=== PATIENT | female | born 1990 | race American Indian/Alaskan Native ===

== ENCOUNTER 2020-06-01 18:55 | Emergency (ER) | payer SELFPAY ==
[2020-06-01] MEDS ORDERED: LIDOCAINE 1% MPF 5 ML VIAL ONE (19:57)
[2020-06-01] MEDS ORDERED: BUPIVACAINE 0.5% PF 10 ML VIAL ONE (19:57)
--- NOTE | 2020-06-01 22:03 | EDPHYS ---
Physician Documentation [facility] Name: Ruthy Hughes Age: 30 yrs Sex: Female : 1990 Arrival Date: 06/01/2020 Time: 18:59 Bed 17 Private MD: ED Physician Christopher Sinclair HPI: 06/01 19:38 This 30 yrs old Other Female presents to ER via Ambulatory with complaints of Finger mh7 Swelling. 19:38 The patient or guardian reports swelling. The complaints affect the Left middle mh7 fingertip. Context: The problem was sustained at an unknown location, resulted from biting finger nail. Onset: The symptoms/episode began/occurred 2 day(s) ago. Modifying factors: The symptoms are alleviated by nothing, the symptoms are aggravated by nothing. Associated signs and symptoms: Pertinent negatives: cyanosis distally, decreased sensation distally, fever, nausea, numbness distally, tingling distally, vomiting. Severity of symptoms: At their worst the symptoms were mild, yesterday, in the emergency department the symptoms are unchanged. NREMT: 19:19 LMP 04/2020 ca1 19:19 LMP N/A - control method ca1 Historical: - Allergies: 19:19 No Known Allergies; ca1 - Home Meds: 19:19 risperidone oral oral [Active]; sertraline oral oral [Active]; Hydroxyzine Oral ca1 [Active]; gabapentin oral oral [Active]; - PMHx: 19:19 Anxiety; ca1 - PSHx: 19:19 None; ca1 - Immunization history:: Adult Immunizations up to date. - Social history:: Smoking status: Patient reports the use of cigarette tobacco products, smokes one-half pack cigarettes per day. ROS: 19:38 Constitutional: Negative for fever, chills, and weight loss, Eyes: Negative for injury, mh7 pain, redness, and discharge, ENT: Negative for injury, pain, and discharge, Neck: Negative for injury, pain, and swelling, Cardiovascular: Negative for chest pain, palpitations, and edema, Respiratory: Negative for shortness of breath, cough, wheezing, and pleuritic chest pain, Abdomen/GI: Negative for abdominal pain, nausea, vomiting, diarrhea, and constipation, Back: Negative for injury and pain, : Negative for injury, bleeding, discharge, and swelling, Skin: Negative for injury, rash, and discoloration, Neuro: Negative for headache, weakness, numbness, tingling, and seizure, Psych: Negative for depression, anxiety, suicide ideation, homicidal ideation, and hallucinations, Allergy/Immunology: Negative for hives, rash, and allergies, Endocrine: Negative for neck swelling, polydipsia, polyuria, polyphagia, and marked weight changes, Hematologic/Lymphatic: Negative for swollen nodes, abnormal bleeding, and unusual bruising. Exam: 19:38 Constitutional: This is a well developed, well nourished patient who is awake, alert, mh7 and in no acute distress. Head/Face: Normocephalic, atraumatic. Chest/axilla: Normal chest wall appearance and motion. Nontender with no deformity. No lesions are appreciated. Cardiovascular: Regular rate and rhythm with a normal S1 and S2. No gallops, murmurs, or rubs. Normal PMI, no JVD. No pulse deficits. Respiratory: Lungs have equal breath sounds bilaterally, clear to auscultation and percussion. No rales, rhonchi or wheezes noted. No increased work of breathing, no retractions or nasal flaring. Abdomen/GI: Soft, non-tender, with normal bowel sounds. No distension or tympany. No guarding or rebound. No evidence of tenderness throughout. Back: No spinal tenderness. No costovertebral tenderness. Full range of motion. 19:38 Skin: Warm, dry with normal turgor. Normal color with no rashes, no lesions, and no evidence of cellulitis. Neuro: Awake and alert, GCS 15, oriented to person, place, time, and situation. Cranial nerves II-XII grossly intact. Motor strength 5/5 in all extremities. Sensory grossly intact. Cerebellar exam normal. Normal gait. Psych: Awake, alert, with orientation to person, place and time. Behavior, mood, and affect are within normal limits. 19:38 Musculoskeletal/extremity: Extremities: noted in the Left middle fingertip/jarett fold: erythema, swelling, tenderness, ROM: intact in all extremities, Circulation is intact in all extremities. Pulses: are normal with no appreciated deficits, Perfusion: the patient is normally perfused throughout, Perfusion: the extremity is normally perfused throughout, Sensation intact. Compartment Syndrome exam of affected extremity: is normal. no numbness, no tingling, no sensation deficit, no palor, no weak pulses, Joints: All joints appear normal with full range of motion. 06/02 05:27 Musculoskeletal/extremity: Swelling and tenderness to palmar left middle finger tip mh7 too. Vital Signs: 06/01 19:15 BP 126 / 69; Pulse 77; Resp 16 S; Temp 99.1(O); Pulse Ox 98% on R/A; Weight 97.52 kg ca1 (R); Height 5 ft. 4 in. (162.56 cm) (R); 20:00 BP 126 / 62; Pulse 75; Resp 16; Pulse Ox 100% ; rr5 21:00 BP 133 / 79; Pulse 80; Resp 15; Pulse Ox 98% ; rr5 22:17 BP 121 / 75; Pulse 70; Resp 19; Pulse Ox 99% ; rr5 19:15 Body Mass Index 36.90 (97.52 kg, 162.56 cm) ca1 Procedures: 21:57 I \T\ D: Incision and drainage was performed for an abscess of the left dorsal and volar mh7 left middle finger tip Prepped with Betadine, Anesthetized with 4 ml's 1% Lidocaine. Incised with #11 blade. Drained small amount purulent fluid. serosanguinous fluid. Packed with iodoform gauze, Dressing: sterile 4x4 gauze, non-Adherent dressing, the patient tolerated the procedure well. MDM: 19:34 Patient medically screened. 7 21:57 Differential diagnosis: contusion, abrasion, paronychia, felon. Data reviewed: [facility] signs, nurses notes. Data interpreted: Pulse oximetry: on room air is 98 %. Interpretation: normal. Counseling: I had a detailed discussion with the patient and/or guardian regarding: the historical points, exam findings, and any diagnostic results supporting the discharge/admit diagnosis, the need for outpatient follow up, to return to the emergency department if symptoms worsen or persist or if there are any questions or concerns that arise at home. Response to treatment: the patient's symptoms have markedly improved after treatment. 06/01 22:15 Order name: Incision \T\ Drainage Setup; Complete Time: 22:15 rr5 Administered Medications: 21:35 Drug: Lidocaine (1 %) 5 ml {Note: given by .} Volume: 5 ml; Route: rr5 Infiltration; 22:18 Follow up: Response: No adverse reaction rr5 22:16 Not Given (Other Intervention Used): Marcaine (0.5 %) 10 ml 10 ml Infiltration once rr5 Disposition: 06/01/20 22:01 Discharged to Home. Impression: Left Middle Finger Paronychia, Left Middle Finger Felon. - Condition is Stable. - Discharge Instructions: Paronychia, [id number], Felon. - Prescriptions for Ibuprofen 800 mg Oral Tablet - take 1 tablet by ORAL route every 8 hours As needed take with food; 15 tablet. Keflex 500 mg Oral Capsule - take 1 capsule by ORAL route every 6 hours for 7 days; 28 capsule. - Medication Reconciliation Form, Thank You Letter, Antibiotic Education, Prescription Opioid Use form. - Follow up: Emergency Department; When: 48 Hours; Reason: Wound Recheck. Follow up: Private Physician; When: 1 - 2 days; Reason: Worsening of condition, Recheck today's complaints, Continuance of care, Re-evaluation by your physician. - Problem is new. - Symptoms have improved. Signatures: Leo Andrew PA PA cp Roque, Raymond RN RN rr5 AcPamela woods RN RN ca1 Christopher Sinclair MD MD mh7 Corrections: (The following items were deleted from the chart) 22:18 22:01 06/01/2020 22:01 Discharged to Home. Impression: Left Middle Finger Paronychia; rr5 Left Middle Finger Felon. Condition is Stable. Forms are Medication Reconciliation Form, Thank You Letter, Antibiotic Education, Prescription Opioid Use. Follow up: Emergency Department; When: 48 Hours; Reason: Wound Recheck. Follow up: Private Physician; When: 1 - 2 days; Reason: Worsening of condition, Recheck today's complaints, Continuance of care, Re-evaluation by your physician. Problem is new. Symptoms have improved. mh7
--- NOTE | 2020-06-01 22:19 | ER ---
Nurse's Notes [facility] Name: Ruthy Hughes Age: 30 yrs Sex: Female : 1990 Arrival Date: 06/01/2020 Time: 18:59 Bed 17 Private MD: Diagnosis: Left Middle Finger Paronychia;Left Middle Finger Felon Presentation: 06/01 19:15 Chief complaint: Patient states: 3rd digit of L hand swelling x 2 days. Denies injury. ca1 Coronavirus screen: Client denies travel out of the [place] in the last 14 days. At this time, the client does not indicate any symptoms associated with coronavirus-19. Ebola Screen: Patient negative for fever greater than or equal to 101.5 degrees Fahrenheit, and additional compatible Ebola Virus Disease symptoms Patient denies exposure to infectious person. Patient denies travel to an Ebola-affected area in the 21 days before illness onset. No symptoms or risks identified at this time. Initial Sepsis Screen: Does the patient meet any 2 criteria? No. Patient's initial sepsis screen is negative. Does the patient have a suspected source of infection? No. Patient's initial sepsis screen is negative. Risk Assessment: Do you want to hurt yourself or someone else? Patient reports no desire to harm self or others. Onset of symptoms was June 01, 2020. 19:15 Method Of Arrival: Ambulatory ca1 19:15 Acuity: RENEE 4 ca1 MANAGER LEGAL: 19:19 LMP 04/2020 ca1 19:19 LMP N/A - control method ca1 Historical: - Allergies: 19:19 No Known Allergies; ca1 - Home Meds: 19:19 risperidone oral oral [Active]; sertraline oral oral [Active]; Hydroxyzine Oral ca1 [Active]; gabapentin oral oral [Active]; - PMHx: 19:19 Anxiety; ca1 - PSHx: 19:19 None; ca1 - Immunization history:: Adult Immunizations up to date. - Social history:: Smoking status: Patient reports the use of cigarette tobacco products, smokes one-half pack cigarettes per day. Screenin:55 Abuse screen: Denies threats or abuse. Denies injuries from another. Nutritional rr5 screening: No deficits noted. Tuberculosis screening: No symptoms or risk factors identified. Fall Risk Gait- Impaired (20 pts.). Total Funez Fall Scale indicates No Risk (0-24 pts). Assessment: 19:30 General: Appears in no apparent distress. uncomfortable, Behavior is calm, cooperative, rr5 appropriate for age. 19:30 Pain: Complains of pain in dorsal aspect of distal phalanx of left middle finger Pain rr5 currently is 8 out of 10 on a pain scale. Quality of pain is described as aching, Pain began gradually, Is intermittent. Neuro: Level of Consciousness is awake, alert, obeys commands, Oriented to person, place, time, situation. Cardiovascular: Capillary refill < 3 seconds Patient's skin is warm and dry. Respiratory: Reports. GI: No signs and/or symptoms were reported involving the gastrointestinal system. : No signs and/or symptoms were reported regarding the genitourinary system. EENT: No signs and/or symptoms were reported regarding the EENT system. Derm: Abscess located on dorsal aspect of distal phalanx of left middle finger is red, swollen. Musculoskeletal: Circulation, motion, and sensation intact. Capillary refill < 3 seconds. Vital Signs: 19:15 BP 126 / 69; Pulse 77; Resp 16 S; Temp 99.1(O); Pulse Ox 98% on R/A; Weight 97.52 kg ca1 (R); Height 5 ft. 4 in. (162.56 cm) (R); 20:00 BP 126 / 62; Pulse 75; Resp 16; Pulse Ox 100% ; rr5 21:00 BP 133 / 79; Pulse 80; Resp 15; Pulse Ox 98% ; rr5 22:17 BP 121 / 75; Pulse 70; Resp 19; Pulse Ox 99% ; rr5 19:15 Body Mass Index 36.90 (97.52 kg, 162.56 cm) ca1 ED Course: 18:59 Patient arrived in ED. as 19:17 Triage completed. ca1 19:19 Arm band placed on right wrist. ca1 19:23 Dedrick Cuenca RN is Primary Nurse. rr5 19:25 Christopher Sinclair MD is Attending Physician. mh7 19:55 Patient has correct armband on for positive identification. Bed in low position. Call rr5 light in reach. 21:40 Assist provider with I \T\ D: of an abscess on left middle finger hand Set up I\T\D tray. rr 5 Performed by Christopher Sinclair MD Wound packed. iodoform gauze, Dressing with 4X4s, tape Patient tolerated well. 21:40 Patient did not have IV access during this emergency room visit. rr5 Administered Medications: 21:35 Drug: Lidocaine (1 %) 5 ml {Note: given by .} Volume: 5 ml; Route: rr5 Infiltration; 22:18 Follow up: Response: No adverse reaction rr5 22:16 Not Given (Other Intervention Used): Marcaine (0.5 %) 10 ml 10 ml Infiltration once rr5 Outcome: 22:01 Discharge ordered by MD. aguilar 22:17 Discharged to home ambulatory. rr5 22:17 Condition: stable 22:17 Discharge instructions given to patient, Instructed on discharge instructions, follow up and referral plans. medication usage, Demonstrated understanding of instructions, follow-up care, medications, Prescriptions given X 2. 22:18 Patient left the ED. rr5 Signatures: Josefina Molina Raymond, RN RN rr5 Pamela Galvin RN RN ca1 Christopher Sinclair MD MD [facility]
[2020-06-01 22:52] VITALS: TEMP 99.1
[2020-06-01 22:55] VITALS: BP 121/75; O2SAT 99
== END 2020-06-01 22:18 | disposition home or self-care (01) ==
LOC: ER 18:55
PROC: 0J9K0ZZ Drainage of Left Hand Subcutaneous Tissue and Fascia, Open Approach (ICD-10-PCS; principal; 2020-06-01)
DX: L03.012 Cellulitis of left finger (principal); F41.9 Anxiety disorder, unspecified; F17.210 Nicotine dependence, cigarettes, uncomplicated
CPT/HCPCS: 99283

== ENCOUNTER 2020-06-03 18:55 | Emergency (ER) | payer SELFPAY ==
--- NOTE | 2020-06-03 19:33 | ER ---
Nurse's Notes [facility] Name: Ruthy Hughes Age: 30 yrs Sex: Female : 1990 Arrival Date: 06/03/2020 Time: 18:58 Bed 4 Private MD: Diagnosis: Encounter for change or removal of surgical wound dressing Presentation: 06/03 19:11 Chief complaint: Patient states: States she had finger infection drained two days ago, ll1 left hand 3rd digit. Here for wound re-check. States there is packing in it. Coronavirus screen: Client denies travel out of the [place] in the last 14 days. Ebola Screen: Patient denies travel to an Ebola-affected area in the 21 days before illness onset. Initial Sepsis Screen: Does the patient meet any 2 criteria? No. Patient's initial sepsis screen is negative. Risk Assessment: Do you want to hurt yourself or someone else? Patient reports no desire to harm self or others. Onset of symptoms is unknown. 19:11 Method Of Arrival: Ambulatory ll1 19:11 Acuity: RENEE 4 ll1 19:36 Initial Sepsis Screen: Does the patient have a suspected source of infection? No. rv Patient's initial sepsis screen is negative. Historical: - Allergies: 19:12 No Known Allergies; ll1 - PMHx: 19:12 Anxiety; ll1 - PSHx: 19:12 None; ll1 - Immunization history:: Adult Immunizations up to date. - Social history:: Smoking status: unknown. Screenin:36 Abuse screen: Denies threats or abuse. Denies injuries from another. Nutritional rv screening: No deficits noted. Tuberculosis screening: No symptoms or risk factors identified. Fall Risk None identified. Assessment: 19:35 General: Appears comfortable, Behavior is calm, cooperative. Pain: Complains of pain in rv palmar aspect of distal phalanx of left middle finger. Neuro: Level of Consciousness is awake, alert, obeys commands, Oriented to person, place, time, situation. Respiratory: Airway is patent. Derm: Wound noted palmar aspect of distal phalanx of left middle finger. Vital Signs: 19:11 BP 120 / 80; Pulse 64; Resp 16; Temp 98.5; Pulse Ox 99% ; Pain 8/10; ll1 ED Course: 18:58 Patient arrived in ED. mr Lonnie:12 Suman Leyva is Primary Nurse. 19:12 Triage completed. ll1 19:13 Arm band placed on Patient placed in an exam room, on a stretcher. ll1 19:22 Mushtaq Salazar MD is Attending Physician. tw4 19:36 Patient has correct armband on for positive identification. Pulse ox on. NIBP on. rv 19:36 No provider procedures requiring assistance completed. Patient did not have IV access rv during this emergency room visit. Wound care: to laceration located on palmar aspect of distal phalanx of left middle finger was cleaned with Hibiclens, irrigated with normal saline, Patient tolerated well. Administered Medications: No medications were administered Outcome: 19:32 Discharge ordered by . tw4 19:37 Discharged to home ambulatory. rv 19:37 Condition: good 19:37 Discharge instructions given to patient, Instructed on discharge instructions, follow up and referral plans. wound care, Demonstrated understanding of instructions, follow-up care, wound care. 19:37 Patient left the ED. rv Signatures: Samantha Gutierrez mr Suman Leyva Mushtaq Salazar MD MD tw4 Almas Lopez, RN RN rv James Pittman RN RN ll1 Corrections: (The following items were deleted from the chart) 19:13 19:11 Chief complaint: Patient states: States she had finger infection drained two days ll1 ago. Here for wound re-check. States there is packing in it. ll1
[2020-06-03 19:43] VITALS: BP 120/80; TEMP 98.5; O2SAT 99
--- NOTE | 2020-06-04 19:39 | EDPHYS ---
Physician Documentation [facility] Name: Ruthy Hughes Age: 30 yrs Sex: Female : 1990 Arrival Date: 06/03/2020 Time: 18:58 Bed 4 Private MD: ED Physician Mushtaq Salazar HPI: 06/04 06:46 This 30 yrs old Other Female presents to ER via Ambulatory with complaints of Wound tw4 Recheck. 06:46 Patient presents to ED for recheck of: abscess. The affected area is on the palmar tw4 aspect of distal phalanx of left index finger. Progress: The patient reports excellent improvement in the affected area. There has been resolution, improvement, or non-development of any drainage, fever, pain, redness or swelling. The patient has not experienced similar symptoms in the past. Historical: - Allergies: 06/03 19:12 No Known Allergies; ll1 - PMHx: 19:12 Anxiety; ll1 - PSHx: 19:12 None; ll1 - Immunization history:: Adult Immunizations up to date. - Social history:: Smoking status: unknown. ROS: 06/04 06:46 Constitutional: Negative for fever, chills, and weight loss, Eyes: Negative for injury, tw4 pain, redness, and discharge, Cardiovascular: Negative for chest pain, palpitations, and edema, Respiratory: Negative for shortness of breath, cough, wheezing, and pleuritic chest pain, Abdomen/GI: Negative for abdominal pain, nausea, vomiting, diarrhea, and constipation. Skin: Positive for erythema. Exam: 06:46 Constitutional: This is a well developed, well nourished patient who is awake, alert, tw4 and in no acute distress. Head/Face: Normocephalic, atraumatic. Chest/axilla: Normal chest wall appearance and motion. Nontender with no deformity. No lesions are appreciated. Cardiovascular: Regular rate and rhythm with a normal S1 and S2. No gallops, murmurs, or rubs. Normal PMI, no JVD. No pulse deficits. 06:46 Musculoskeletal/extremity: Extremities: noted in the palmar aspect of distal phalanx of left index finger: Vital Signs: 06/03 19:11 BP 120 / 80; Pulse 64; Resp 16; Temp 98.5; Pulse Ox 99% ; Pain 8/10; ll1 MDM: 19:22 Patient medically screened. tw4 06/04 06:46 Data reviewed: vital signs, nurses notes. Data interpreted: Pulse oximetry: tw4 Interpretation: normal. Counseling: I had a detailed discussion with the patient and/or guardian regarding: the historical points, exam findings, and any diagnostic results supporting the discharge/admit diagnosis. Special discussion: I discussed with the patient/guardian in detail that at this point there is no indication for admission to the hospital. It is understood, however, that if the symptoms persist or worsen the patient needs to return immediately for re-evaluation. Administered Medications: No medications were administered Disposition: 06/03/20 19:32 Discharged to Home. Impression: Encounter for change or removal of surgical wound dressing. - Condition is Stable. - Discharge Instructions: Incision Care, Adult, How to Change Your Dressing, [id number]. - Medication Reconciliation Form, Thank You Letter, Antibiotic Education, Prescription Opioid Use form. - Follow up: Private Physician; When: Upon discharge from the Emergency Department; Reason: Wound Recheck, Recheck today's complaints, Continuance of care, Re-evaluation by your physician. - Problem is new. - Symptoms have improved. Signatures: Mushtaq Salazar MD MD tw4 Almas Lopez RN RN rv James Pittman RN RN ll1 Corrections: (The following items were deleted from the chart) 06/03 19:37 19:32 06/03/2020 19:32 Discharged to Home. Impression: Encounter for change or removal rv of surgical wound dressing. Condition is Stable. Forms are Medication Reconciliation Form, Thank You Letter, Antibiotic Education, Prescription Opioid Use. Follow up: Private Physician; When: Upon discharge from the Emergency Department; Reason: Wound Recheck, Recheck today's complaints, Continuance of care, Re-evaluation by your physician. Problem is new. Symptoms have improved. tw4
== END 2020-06-03 19:37 | disposition home or self-care (01) ==
LOC: ER 18:55
DX: Z48.01 Encounter for change or removal of surgical wound dressing (principal)
CPT/HCPCS: 99283